=== PATIENT | female | born 1990 | race Caucasian/White ===

== ENCOUNTER 2023-07-30 05:43 | Day surgery (SDC) | payer BC ==
[2023-07-28 16:09] LABS: PRE OP HEMOGLOBIN 14.1 g/dL (12.0-16.0); RED CELL DISTRIBUTION WIDTH 12.8 % (11.5-14.5)
[2023-07-28 16:12] LABS: MEAN CORPUSCULAR HEMOGLOBIN 30.8 PG (27.0-31.0); MEAN CORPUSCULAR HGB CONC 34.2 g/dL (33.0-36.5); MEAN CORPUSCULAR VOLUME 90.1 FL (78-98); PRE OP HEMATOCRIT 41.2 % (35.0-45.0); PRE OP WHITE BLOOD COUNT 9.8 10'3 (4.8-10.8); RED BLOOD COUNT 4.57 X10'6 (4.20-5.60)
[2023-07-28 16:13] LABS: BASOPHILS # (AUTO) 0.1 X10'3 (0-0.2); BASOPHILS % (AUTO) 0.5 % (0-1); EOSINOPHILS # (AUTO) 0.1 X10'3 (0-0.9); EOSINOPHILS % (AUTO) 0.8 % (0-6); LYMPHOCYTES # (AUTO) 1.9 X10'3 (1.1-4.8); LYMPHOCYTES % (AUTO) 19.3 % (21-51); MEAN PLATELET VOLUME 7.3 FL (7.4-10.4); MONOCYTES # (AUTO) 0.4 X10'3 (0-0.9); MONOCYTES % (AUTO) 4.3 % (2-12); NEUTROPHILS # (AUTO) 7.4 X10'3 (1.8-7.7); NEUTROPHILS % (AUTO) 75.1 % (42-75); PRE OP PLATELET COUNT 295 X10'3 (140-440)
[2023-07-28 16:35] LABS: HCG SERUM QL NEGATIVE
[2023-07-28 16:46] LABS: ALBUMIN 3.9 G/DL (3.4-5.0); ALBUMIN/GLOBULIN RATIO 0.9 (1.1-1.5); ALKALINE PHOSPHATASE 63 IU/L (46-116); BLOOD UREA NITROGEN 24 MG/DL (7-18); BUN/CREATININE RATIO 25.5 (10.0-20.0); CALCIUM 9.4 MG/DL (8.5-10.1); CHLORIDE 101 MMOL/L (99-107); CREATININE 0.94 MG/DL (0.40-0.90); PRE OP ALT 31 U/L (30-65); PRE OP ANION GAP 9 (8-16); PRE OP AST 16 U/L (10-37); PRE OP BILIRUB, TOTAL 0.3 MG/DL (0.0-1.0); PRE OP GLUCOSE 98 MG/DL (70-104); PRE OP POTASSIUM 3.9 MMOL/L (3.4-5.1); PRE OP SODIUM 137 MMOL/L (135-145); TOTAL CARBON DIOXIDE 26.8 MMOL/L (24-32); TOTAL PROTEIN 8.1 G/DL (6.4-8.2); eGFR 68 ML/MIN
[2023-07-30] VITALS (8 sets, daily range): BP systolic 106–136; BP diastolic 65–78; PULSE 65–89; RESP 15–16; TEMP 97.7; O2SAT 95–100
[~2023-07-30] VITALS: Ht 170.2 cm; Wt 57.8 kg
[~2023-07-30 05:43] MED LIST: ESCI-8 PO
[2023-07-30] MEDS: cefazolin 2gm/D5W 100mL 100 ML IV ONE (05:59)
[2023-07-30] MEDS: famotidine 20mg tablet PO ONE (06:13)
[2023-07-30] MEDS: ringers solution, lacted 1,000 ML IV SCH (06:13)
[2023-07-30] MEDS ORDERED: LIDOcaine 1% (10mg/ml)w/preservative inj. 20ml MDV ONE (06:58)
[2023-07-30] MEDS ORDERED: BUPIVAcaine 2.5mg/ml inj 50ml vial (contains preservative) ONE (06:58)
[2023-07-30] MEDS ORDERED: fentaNYL/PF 50MCG/1 ML 2ML syringe ONE (07:22)
[2023-07-30] MEDS ORDERED: midazolam 1 mg/ML 2ml injection ONE (07:22)
[2023-07-30] MEDS ORDERED: sevoflurane 250ml liquid IH ONE (07:32)
[2023-07-30] MEDS ORDERED: ringers solution, lacted 1,000 ML IV SCH (07:35)
[2023-07-30] MEDS ORDERED: proCHLORperazine 10 MG/2 ml inj IV PRN (07:35)
[2023-07-30] MEDS ORDERED: enalaprilat dihydrate 2.5mg/2ml vial IV PRN (07:35)
[2023-07-30] MEDS ORDERED: ondansetron/PF 4mg/2ml inj IV PRN (07:35)
[2023-07-30] MEDS ORDERED: meperidine/PF 25mg/ml syringe IV PRN ×2 (07:35)
[2023-07-30] MEDS ORDERED: morphine 2 MG/ML inj. syringe IV PRN (07:35)
[2023-07-30] MEDS ORDERED: morphine 4 MG/ML inj SYRINge IV PRN (07:35)
[2023-07-30] MEDS ORDERED: labetalol 20mg/4ml (5mg/ml) syringe IV PRN (07:35)
[2023-07-30] MEDS ORDERED: BUPIVAcaine/PF 7.5mg/ml (0.75%) 10ml vial ONE (07:52)
[2023-07-30] MEDS ORDERED: ondansetron/PF 4mg/2ml inj ONE (08:23)
[2023-07-30] MEDS ORDERED: dexamethasone sod phosphate 4mg/ml inj. ONE (08:23)
[2023-07-30] MEDS ORDERED: LIDOcaine 2% (20mg/ml) 5ml vial ONE (08:23)
[2023-07-30] MEDS ORDERED: propofol inj 20 ML IV ONE (08:23)
[2023-07-30] MEDS: meperidine/PF 25mg/ml syringe IV PRN (09:00)
== END 2023-07-30 09:54 | disposition home or self-care (01) ==
LOC: PAS 05:43
PROVIDERS: ATTEND Surgery
DX: N64.52 Nipple discharge (principal); N60.11 Diffuse cystic mastopathy of right breast; N60.12 Diffuse cystic mastopathy of left breast; Z79.899 Other long term (current) drug therapy; Z98.890 Other specified postprocedural states; G89.18 Other acute postprocedural pain
CPT/HCPCS: 19120; 36415; 64450; 76942; 80053; 82948; 84703; 85025; J0690; J1100; J2175; J2250; J2405; J2704; J3010; J3490; J7030; J7120; Z7506; Z7508; Z7512; A4215; A4618; A6449; A7000